=== PATIENT | male | born 1990 | race Caucasian/White ===

== ENCOUNTER → 2021-02-19 | Emergency (ER) | payer OTHER ==
[~2021-02-19] MED LIST: KEFLEX750 MG PO; PERCOCET 5/325 T1 EA PO
== END | disposition home or self-care (01) ==
LOC: ER1 19:39
DX: S61.215A Laceration without foreign body of left ring finger without damage to nail, initial encounter (principal); Z23 Encounter for immunization; W23.0XXA Caught, crushed, jammed, or pinched between moving objects, initial encounter; Y92.828 Other wilderness area as the place of occurrence of the external cause
CPT/HCPCS: 12001; 73140; 90471; 90715; 99283